=== PATIENT | male | born 1990 | race Caucasian/White ===

== ENCOUNTER 2021-02-09 11:19 | Emergency (ER) | payer OTHER ==
[2021-02-09 13:32] VITALS: RESP 18; TEMP 98.5
--- NOTE | 2021-02-09 13:57 | ED ---
Upper Extremity HPI - General Source: patient, RN notes reviewed Mode of arrival: ambulatory Limitations: no limitations <Ned Hines - Last Filed: 02/09/21 15:09> <Mari Plaza - Last Filed: 02/10/21 00:47> - General Chief Complaint: Extremity Injury, Upper Stated Complaint: shoulder injury Time Seen by Provider: 02/09/21 13:34 - History of Present Illness Initial Comments: Patient is a 30-year-old male presents to the ED for right shoulder pain. Patient states that today he was wrestling with his friend on the bed when they fell off the side. Patient reports he landed on right shoulder and been friend fell on top of him. Patient states hearing/feeling a pop related to the fall. Patient states they are unable to move her arm because of 10 out of 10 pain. Patient denies any elbow or upper arm pain. Patient reports no nausea or vomiting related to pain and states they're in normal good health before this event. (Ned Hines) - Related Data Previous Rx's Medication Instructions Recorded Ibuprofen [Motrin] 600 mg PO Q8HR PRN #20 tab 02/09/21 Allergies Allergy/AdvReac Type Severity Reaction Status Date / Time No Known Allergies Allergy Verified 02/09/21 13:32 Review of Systems ROS Other: All systems not noted in ROS Statement are negative. <Ned Hines - Last Filed: 02/09/21 15:09> ROS Other: All systems not noted in ROS Statement are negative. <Mari Plaza - Last Filed: 02/10/21 00:47> ROS Statement: Those systems with pertinent positive or pertinent negative responses have been documented in the HPI. Past Medical History Past Medical History: No Reported History History of Any Multi-Drug Resistant Organisms: None Reported Past Surgical History: No Surgical Hx Reported Past Psychological History: No Psychological Hx Reported Smoking Status: Current every day smoker Past Alcohol Use History: Occasional Past Drug Use History: None Reported <Ned Hines - Last Filed: 02/09/21 15:09> General Exam Limitations: no limitations General appearance: alert, in distress (Pain) Neck exam: Present: normal inspection, full ROM. Absent: tenderness, meningismus, lymphadenopathy Respiratory exam: Present: normal lung sounds bilaterally. Absent: respiratory distress, wheezes, rales, rhonchi, stridor Cardiovascular Exam: Present: regular rate, normal rhythm, normal heart sounds. Absent: systolic murmur, diastolic murmur, rubs, gallop, clicks Right General: Present: normal inspection Shoulder Exam: Present: tenderness (Severe), dislocation (Possible), other (Limited range of motion) Upper Arm exam: Present: normal inspection Elbow exam: Present: normal inspection Forearm Wrist exam: Present: normal inspection Hand Wrist exam: Present: normal inspection Back exam: Present: normal inspection Neurological exam: Present: alert, oriented X3 Skin exam: Present: warm, dry, intact, normal color. Absent: rash <Ned Hines - Last Filed: 02/09/21 15:09> Course Vital Signs 02/09/21 02/09/21 13:29 15:30 Temperature 98.5 F 98.5 F Pulse Rate 81 79 Respiratory 18 18 Rate Blood Pressure 123/81 128/78 O2 Sat by Pulse 97 98 Oximetry Medical Decision Making <Ned Hines - Last Filed: 02/09/21 15:09> <Mari Plaza - Last Filed: 02/10/21 00:47> - Medical Decision Making Patient presented with fall to the right shoulder, x-ray of right shoulder showed mild AC joint separation. Patient provided arm sling and Tylenol starter pack for pain. Orthopedic referral was also given for follow-up. (Ned Hines) I was available for consultation in the emergency department. The history and physical exam were done by the midlevel provider. I was consulted for this patients care. I reviewed the case with the midlevel provider and based on their presentation of the patient, I agree with the assessment, medical decision making and plan of care as documented. Chart was dictated using [employer] dictation software. Attempts were made to correct any dictation errors however some typographical errors may persist. (Mari Plaza) Disposition Is patient prescribed a controlled substance at d/c from ED?: No Time of Disposition: 15:09 <Ned Hines - Last Filed: 02/09/21 15:09> <Mari Plaza - Last Filed: 02/10/21 00:47> Clinical Impression: Acromioclavicular (AC) joint injury Disposition: HOME SELF-CARE Condition: Stable Instructions (If sedation given, give patient instructions): Acromioclavicular Separation (ED) Additional Instructions: Please return to the Emergency Department if symptoms worsen or any other concerns. Prescriptions: Ibuprofen [Motrin] 600 mg PO Q8HR PRN #20 tab PRN Reason: Pain Referrals: None,Stated [Primary Care Provider] - 1-2 days Maikel Matias MD [Medical Doctor] - 1-2 days
[2021-02-09] MEDS ORDERED: HYDROcodone/APAP 7.5-325MG 1 EACH TAB PO ONE (13:58)
--- NOTE | 2021-02-09 14:47 | XR ---
Right shoulder HISTORY: Pain, trauma 3 views of the right shoulder Bone mineralization is maintained. There is slight superior displacement of the distal clavicle in re lation to the acromion. Right lung apex as visualized is normal. IMPRESSION: Correlate for possible acromioclavicular separation.
[2021-02-09] MEDS ORDERED: ACET/COD 300 MG/30 MG STARTER PACK 6 TAB BTL PO STA (14:56)
[2021-02-09 15:40] VITALS: BP 128/78; PULSE 79
== END 2021-02-09 15:30 | disposition home or self-care (01) ==
LOC: EC 11:19
DX: S49.91XA Unspecified injury of right shoulder and upper arm, initial encounter (principal); F17.200 Nicotine dependence, unspecified, uncomplicated; W06.XXXA Fall from bed, initial encounter; Y93.72 Activity, wrestling; Y92.89 Other specified places as the place of occurrence of the external cause
CPT/HCPCS: 99283

== ENCOUNTER 2023-05-11 15:29 | Inpatient (IN) | payer OTHER ==
[2023-05-11] MEDS ORDERED: LORazepam 2 MG/ML INJ IM PRN (16:07)
[2023-05-11] MEDS ORDERED: MAG HYDROX/AL HYDROX/SIMETH 30 ML CUP PO PRN (16:07)
[2023-05-11] MEDS ORDERED: haloperidoL 5 MG TAB PO PRN (16:07)
[2023-05-11] MEDS ORDERED: LORazepam 1 MG TAB PO PRN (16:07)
[2023-05-11] MEDS ORDERED: ONDANSETRON 4 MG TAB PO PRN (16:07)
[2023-05-11] MEDS ORDERED: ACETAMINOPHEN TAB 325 MG TAB PO PRN (16:07)
[2023-05-11] MEDS ORDERED: HALOPERIDOL LACTATE 5 MG/ML 1 ML VIAL IM PRN (16:07)
[2023-05-11] MEDS ORDERED: MAGNESIUM HYDROXIDE 2,400 MG/30 ML CUP PO PRN (16:07)
[2023-05-11] MEDS ORDERED: oxyCODONE-APAP 5-325MG 1 EACH TAB PO PRN (16:07)
[2023-05-11] MEDS ORDERED: SODIUM CHLORIDE 0.65% NASAL SPRAY 44 ML BTL NASAL PRN (16:07)
[2023-05-11] MEDS ORDERED: QUEtiapine 25 MG TAB PO SCH (21:00)
[2023-05-11] MEDS ORDERED: ENOXAPARIN 30 MG/0.3 ML SYRINGE SQ SCH (21:00)
[2023-05-12] MEDS: CHLORHEXIDINE GLUCONATE 15 ML CUP MUCOUS MEM SCH ×3 (02:59→22:03)
[2023-05-12] MEDS: SENNOSIDES-DOCUSATE SODIUM 1 EACH TAB PO SCH ×2 (03:00→08:53)
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
[2023-05-12] MEDS: FOLIC ACID 1 MG TAB PO SCH (08:50)
[2023-05-12] MEDS: THIAMINE 100 MG TAB PO SCH (08:51)
[2023-05-12] MEDS: SERTRALINE 50 MG TAB PO SCH (08:51)
[2023-05-12] MEDS: MULTIVITAMINS, THERA 1 EACH TAB PO SCH (08:51)
[2023-05-12] MEDS: ENOXAPARIN 40 MG/0.4 ML SYRINGE SQ SCH (08:53)
[2023-05-12] MEDS ORDERED: polyethylene glycoL 3350 17 GM POWD.PACK PO SCH (09:00)
[2023-05-12] MEDS ORDERED: traZODone HCL 50 MG TAB PO PRN (12:39)
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
[2023-05-12 18:30] LABS: LDL Cholesterol,Calculated 136.3 mg/dL (0.0-131.0)
[2023-05-12] MEDS: ACETAMINOPHEN TAB 500 MG TAB PO PRN (22:04)
[2023-05-13] MEDS: ENOXAPARIN 40 MG/0.4 ML SYRINGE SQ SCH (08:57)
[2023-05-13] MEDS: MULTIVITAMINS, THERA 1 EACH TAB PO SCH (08:57)
[2023-05-13] MEDS: FOLIC ACID 1 MG TAB PO SCH (08:57)
[2023-05-13] MEDS: THIAMINE 100 MG TAB PO SCH (08:57)
[2023-05-13] MEDS: SERTRALINE 50 MG TAB PO SCH (08:57)
[2023-05-13] MEDS: CHLORHEXIDINE GLUCONATE 15 ML CUP MUCOUS MEM SCH ×2 (08:57→20:52)
[2023-05-13] MEDS: NALTREXONE HCL 50 MG TAB PO SCH (08:57)
[2023-05-13] MEDS: IBUPROFEN 600 MG TAB PO PRN (08:58)
--- NOTE | 2023-05-13 12:51 | P.PN ---
Progress Note - Text Progress Note Date: 05/13/23 Interval History: Patient was seen [wandering the hallways] and was directable and agreeable to speak with junior copywriter in the office. patient appearts to be less tearful today , somewhat constricted. He was fairly concrete, denies any overlay complaints states he slept fairly. Claims his appetite is improving. He claims that he did speak with his mother and brother over the phone and states that "it went well" however did not give much information for than not. Claims that the guns have been removed from the house. He states that he has been going to some groups today, he was somewhat focused on discharge and continues to minimize need for hospitalization. At this time patient denies any suicidal or homical ideations, intent or plan. Patient denies any auditory, visual hallucinations and denies any paranoia or delusions. Patient denies any side effects from the medications and has been compliant with meds. MENTAL STATUS EXAM: General Appearance: Patient appears to be average stature, stated age is alert, directable, and attempts to cooperate. Patient appears to have fair hygiene and grooming, dressed in hospital gown. Behavior: Patient is seated without any agitated behavior. Not tearful today. Constricted Speech: Patient's speech is fluent and nonpressured. Mood/Affect: Patient reports their mood is "a bit better", affect is congruent and constricted. Minimizing Suicidality/Homicidality: Patient denies having any homicidal ideation intent or plan. Denies any suicidal ideations intent or plan Perceptions: Patient denies any visual hallucinations and denies any auditory hallucinations Though content/process: There is no evidence of any delusional thought content and thought process is linear and goal-directed. [place], minimizing, Memory and concentration: AOX3, grossly intact for the purposes of this session. Judgment and insight: poor, superficial IMPRESSIONS: Major depressive disorder without psychotic features Suicide attempt by firearm Nicotine dependance Marijuana use disorder Cocaine use disorder Alcohol use disorder PLAN: -Patient is admitted under involuntary status to [facility] for stabilization of psychiatric symptoms and safety. Patient has not signed adult voluntary form and medication consent and is placed in patient's chart. A second certification was completed and along with petition will be filed for court. -Medications : trazadone 50mg qhs prn for sleep, Zoloft 50mg qd for mood/anxiety, will consider increaisng tomorrow if tolerated. Naltraxone 50mg qd for alcohol cravings -Ativan and Haldol PRN for agitation/aggression -NRT - nicotine patch -SW on board for discharge planning. Encourage patient to participate in groups to work on coping skills. Patient wants to go to rehab upon discharge. Will await deferral and court date.
[2023-05-13] MEDS: ACETAMINOPHEN TAB 500 MG TAB PO PRN (20:52)
[2023-05-14] MEDS: FOLIC ACID 1 MG TAB PO SCH (08:51)
[2023-05-14] MEDS: CHLORHEXIDINE GLUCONATE 15 ML CUP MUCOUS MEM SCH ×2 (08:51→20:35)
[2023-05-14] MEDS: MULTIVITAMINS, THERA 1 EACH TAB PO SCH (08:51)
[2023-05-14] MEDS: SERTRALINE 50 MG TAB PO SCH (08:52)
[2023-05-14] MEDS: NALTREXONE HCL 50 MG TAB PO SCH (08:52)
[2023-05-14] MEDS: THIAMINE 100 MG TAB PO SCH (08:52)
[2023-05-14] MEDS: ACETAMINOPHEN TAB 500 MG TAB PO PRN ×2 (08:53→20:30)
[2023-05-14] MEDS: ENOXAPARIN 40 MG/0.4 ML SYRINGE SQ SCH (08:55)
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
[2023-05-15] MEDS: THIAMINE 100 MG TAB PO SCH (08:37)
[2023-05-15] MEDS: CHLORHEXIDINE GLUCONATE 15 ML CUP MUCOUS MEM SCH ×2 (08:37→19:52)
[2023-05-15] MEDS: NALTREXONE HCL 50 MG TAB PO SCH (08:37)
[2023-05-15] MEDS: SERTRALINE 50 MG TAB PO SCH (08:37)
[2023-05-15] MEDS: FOLIC ACID 1 MG TAB PO SCH (08:37)
[2023-05-15] MEDS: MULTIVITAMINS, THERA 1 EACH TAB PO SCH (08:37)
[2023-05-15] MEDS: IBUPROFEN 600 MG TAB PO PRN ×2 (08:38→19:54)
--- NOTE | 2023-05-15 18:59 | P.PN ---
Progress Note - Text Progress Note Date: 05/15/23 Interval History: Patient was seen in the activity room was agreeable to speak with this designer/writer. Patient is severely minimizing his attempt and states that it was all due to alcohol intake. However, he is ambivalent about treatment and says that he has numerous tasks that he wishes to accomplish that interfere with going to rehab. As result, patient does not express interest in the rehab at this time. He also does not feel that he needs to be hospitalized and does not recognize the severity of his presentation. He vaguely states that the medications are fine that he has no problems taking them. However, he does not feel he needs them and feels that he can simply quit drinking. At this time patient denies any suicidal or homicidal ideation, intent or plan. Patient denies any auditory, visual hallucinations and denies any paranoia or delusions. Patient denies any side effects from the medications and has been compliant with meds. MENTAL STATUS EXAM: General Appearance: Patient appears to be average stature, stated age is alert, directable, and attempts to cooperate. Patient appears to have fair hygiene and grooming Behavior: Patient is seated without any agitated behavior. Speech: Patient's speech is fluent and nonpressured. Mood/Affect: Patient reports their mood is "good", affect is congruent and constricted. Minimizing Suicidality/Homicidality: Patient denies having any homicidal ideation intent or plan. Denies any suicidal ideations intent or plan Perceptions: Patient denies any visual hallucinations and denies any auditory hallucinations Though content/process: There is no evidence of any delusional thought content and thought process is linear and goal-directed. [place], minimizing, Memory and concentration: AOX3, grossly intact for the purposes of this session. Judgment and insight: poor, superficial IMPRESSIONS: Major depressive disorder without psychotic features Suicide attempt by firearm Nicotine dependance Marijuana use disorder Cocaine use disorder Alcohol use disorder PLAN: -Patient is admitted under involuntary status to [facility] for stabilization of psychiatric symptoms and safety. Patient has not signed adult voluntary form and medication consent and is placed in patient's chart. A second certification was completed and along with petition will be filed for court. -Medications : trazadone 50mg qhs prn for sleep, increase Zoloft to 100mg qd for mood/anxiety. Naltraxone 50mg qd for alcohol cravings -Ativan and Haldol PRN for agitation/aggression -NRT - nicotine patch -IMELDA on board for discharge planning. Encourage patient to participate in groups to work on coping skills. Patient is now ambivalent about going to rehab upon discharge. Will await deferral and court date.
[2023-05-16] MEDS: CHLORHEXIDINE GLUCONATE 15 ML CUP MUCOUS MEM SCH ×2 (08:32→21:00)
[2023-05-16] MEDS: MULTIVITAMINS, THERA 1 EACH TAB PO SCH (08:32)
[2023-05-16] MEDS: SERTRALINE 100 MG TAB PO SCH (08:32)
[2023-05-16] MEDS: THIAMINE 100 MG TAB PO SCH (08:33)
[2023-05-16] MEDS: IBUPROFEN 600 MG TAB PO PRN ×2 (08:33→21:00)
[2023-05-16] MEDS: NALTREXONE HCL 50 MG TAB PO SCH (08:33)
[2023-05-16] MEDS: FOLIC ACID 1 MG TAB PO SCH (08:33)
--- NOTE | 2023-05-16 17:43 | P.PN ---
Progress Note - Text Progress Note Date: 05/16/23 Interval History: Patient was seen bedside this afternoon and was agreeable to speak with this va underwriter. He is rather circumstantial when he discusses his substance use. He states that he has numerous priorities that take precedence over going to rehab at this time. However, he hopes to follow up with community mental health following discharge. He states that once he takes care of his priorities, he hopes to attend rehab somewhere in [place]. He says that he does not want to be close to home while attending rehab because he feels that this will impede his improvement. Patient currently reports that he has not been experiencing any cravings. He admits that his brother has taken away all his guns and denies access to any weapons. He is says that his mood is "fine ". He reports sleeping well. He endorses good appetite. He endorses fair energy. He denies all other concerns at this time. He says he would like to be discharged tomorrow for possible. At this time patient denies any suicidal or homicidal ideation, intent or plan. Patient denies any auditory, visual hallucinations and denies any paranoia or delusions. Patient denies any side effects from the medications and has been compliant with meds. MENTAL STATUS EXAM: General Appearance: Patient appears to be average stature, stated age is alert, directable, and attempts to cooperate. Patient appears to have fair hygiene and grooming Behavior: Patient is seated without any agitated behavior. Speech: Patient's speech is fluent and nonpressured. Mood/Affect: Patient reports their mood is "fine", affect is congruent and constricted. Minimizing Suicidality/Homicidality: Patient denies having any homicidal ideation intent or plan. Denies any suicidal ideations intent or plan Perceptions: Patient denies any visual hallucinations and denies any auditory hallucinations Though content/process: There is no evidence of any delusional thought content and thought process is linear and goal-directed. [place] Memory and concentration: AOX3, grossly intact for the purposes of this session. Judgment and insight: poor, superficial IMPRESSIONS: Major depressive disorder without psychotic features Suicide attempt by firearm Nicotine dependance Marijuana use disorder Cocaine use disorder Alcohol use disorder PLAN: -Patient is admitted under involuntary status to [facility] for stabilization of psychiatric symptoms and safety. Patient has not signed adult voluntary form and medication consent and is placed in patient's chart. A second certification was completed and along with petition will be filed for court. -Medications : trazadone 50mg qhs prn for sleep, Zoloft 100mg qd for mood/anxi ety. Naltraxone 50mg qd for alcohol cravings -Ativan and Haldol PRN for agitation/aggression -NRT - nicotine patch -SW on board for discharge planning. Encourage patient to participate in groups to work on coping skills. Patient would like to attend rehab and plans to set this up by himself. Will await deferral and court date.
[2023-05-17] MEDS: THIAMINE 100 MG TAB PO SCH (09:19)
[2023-05-17] MEDS: FOLIC ACID 1 MG TAB PO SCH (09:19)
[2023-05-17] MEDS: CHLORHEXIDINE GLUCONATE 15 ML CUP MUCOUS MEM SCH ×2 (09:19→21:03)
[2023-05-17] MEDS: SERTRALINE 100 MG TAB PO SCH (09:19)
[2023-05-17] MEDS: NALTREXONE HCL 50 MG TAB PO SCH (09:20)
[2023-05-17] MEDS: MULTIVITAMINS, THERA 1 EACH TAB PO SCH (09:20)
[2023-05-17] MEDS: IBUPROFEN 600 MG TAB PO PRN ×2 (09:21→21:05)
[2023-05-17 14:00] VITALS: BMI 22.9
--- NOTE | 2023-05-17 17:29 | P.PN ---
Subjective Progress Note Date: 05/17/23 Progress Note - Text Progress Note Date: 05/17/23 Interval History: The patient was seen chart was reviewed in case discussed with the nursing staff the patient was seen by a telemedicine patient reports that this is his first admission on a psychiatrist unit he states that he had a lot of stuff that was going on and coded wars buses that about 20 months ago and that he was living with his mother and was feeling sad for her going through her depression patient however slowly introduce that it had also to do with drinking too much and that he will also doing cocaine at that time he reports that he and his brother often do cocaine when they get together and that it did seem to get out of hand he admits that he also has a 12-year-old child from a previous relationship and that he sees her quite often he says that he had done something very impulsively without thinking and that he regrets is behavior and feels very isamar that he survived the current ordeal Patient currently reports that he has not been experiencing any cravings. He admits that his brother has taken away all his guns and denies access to any weapons. He is says that his mood is "fine ". He reports sleeping well. He endorses good appetite. He endorses fair energy. He denies all other concerns at this time. He says he would like to be discharged tomorrow for possible. At this time patient denies any suicidal or homicidal ideation, intent or plan. Patient denies any auditory, visual hallucinations and denies any paranoia or delusions. Patient denies any side effects from the medications and has been compliant with meds. MENTAL STATUS EXAM: General Appearance: Patient appears to be average stature, stated age is alert, directable, and attempts to cooperate. Patient appears to have fair hygiene and grooming patient also tries to project an uncaring behavior and minimizing issues Behavior: Patient is seated without any agitated behavior. Speech: Patient's speech is fluent and nonpressured. Mood/Affect: Patient reports their mood is "fine", affect is congruent and constricted. Minimizing Suicidality/Homicidality: Patient denies having any homicidal ideation intent or plan. Denies any suicidal ideations intent or plan Perceptions: Patient denies any visual hallucinations and denies any auditory hallucinations Though content/process: There is no evidence of any delusional thought content and thought process is linear and goal-directed. [place] Memory and concentration: AOX3, grossly intact for the purposes of this session. Judgment and insight: poor, superficial IMPRESSIONS: Major depressive disorder without psychotic features Suicide attempt by firearm Nicotine dependance Marijuana use disorder Cocaine use disorder Alcohol use disorder PLAN: -Patient is admitted under involuntary status to [facility] for stabilization of psychiatric symptoms and safety. Patient has not signed adult voluntary form and medication consent and is placed in patient's chart. A second certification was completed and along with petition will be filed for court. -Medications : trazadone 50mg qhs prn for sleep, Zoloft 100mg qd for mood/anxiety. Naltraxone 50mg qd for alcohol cravings -Ativan and Haldol PRN for agitation/aggression -NRT - nicotine patch -SW on board for discharge planning. Encourage patient to participate in groups to work on coping skills. Patient would like to attend rehab and plans to set this up by himself. Will await deferral and court date. Continue supportive care and continue to stress on getting quantum treatment including substance use program and inpatient Jero Oglesby MD 05/17/22 Objective - Vital Signs Vital signs: Vital Signs Temp 97.5 F L 05/17/23 06:47 Pulse 60 05/17/23 06:47 Resp 14 05/17/23 06:47 BP 104/59 05/17/23 06:47 Pulse Ox 98 05/17/23 06:47 FiO2 Intake & Output 05/16/23 05/17/23 05/17/23 18:59 06:59 18:59 Weight 72.7 kg 72.7 kg
[2023-05-18] MEDS: CHLORHEXIDINE GLUCONATE 15 ML CUP MUCOUS MEM SCH ×2 (08:50→20:47)
[2023-05-18] MEDS: SERTRALINE 100 MG TAB PO SCH (08:50)
[2023-05-18] MEDS: FOLIC ACID 1 MG TAB PO SCH (08:50)
[2023-05-18] MEDS: MULTIVITAMINS, THERA 1 EACH TAB PO SCH (08:50)
[2023-05-18] MEDS: NALTREXONE HCL 50 MG TAB PO SCH (08:50)
[2023-05-18] MEDS: THIAMINE 100 MG TAB PO SCH (08:50)
[2023-05-18] MEDS: IBUPROFEN 600 MG TAB PO PRN ×2 (08:51→20:47)
--- NOTE | 2023-05-18 13:38 | P.PN ---
Subjective Progress Note Date: 05/18/23 Progress Note - Text Progress Note Date: 05/18/23 Interval History: The patient was seen chart was reviewed in case discussed with the nursing staff the patient was seen by a telemedicine Patient remains demanding patient as to what he has to do to prove that he is doing better he states that he is attending all the groups and meetings he continues to minimize the severity of his actions and remains focused on wanting to go home no agitation or aggression noted patient remains redirectable she states that he slept well he states that he is not having any nightmares he denies any suicidal arms ideations or plans Patient now reports that he plans to follow up with going into a substance use program but is still not yet decided as to where he will go MENTAL STATUS EXAM: General Appearance: Patient appears to be average stature, stated age is alert, directable, and attempts to cooperate. Patient appears to have fair hygiene and grooming patient also tries to project an uncaring behavior and minimizing issues Behavior: Patient is seated without any agitated behavior. Speech: Patient's speech is fluent and nonpressured. Mood/Affect: Patient reports their mood is "fine", affect is congruent and constricted. Minimizing Suicidality/Homicidality: Patient denies having any homicidal ideation intent or plan. Denies any suicidal ideations intent or plan Perceptions: Patient denies any visual hallucinations and denies any auditory hallucinations Though content/process: There is no evidence of any delusional thought content and thought process is linear and goal-directed. [place] Memory and concentration: AOX3, grossly intact for the purposes of this session. Judgment and insight: poor, superficial IMPRESSIONS: Major depressive disorder without psychotic features Suicide attempt by firearm Nicotine dependance Marijuana use disorder Cocaine use disorder Alcohol use disorder PLAN: -Patient is admitted under involuntary status to [facility] for stabilization of psychiatric symptoms and safety. Patient has not signed adult voluntary form and medication consent and is placed in patient's chart. A second certification was completed and along with petition will be filed for court. -Medications : trazadone 50mg qhs prn for sleep, Zoloft 100mg qd for mood/anx iety. Naltraxone 50mg qd for alcohol cravings -Ativan and Haldol PRN for agitation/aggression -NRT - nicotine patch -SW on board for discharge planning. Encourage patient to participate in groups to work on coping skills. Patient would like to attend rehab and plans to set this up by himself. Will await deferral and court date. Continue supportive care and continue to stress on getting quantum treatment including substance use program and inpatient Jero Oglesby MD 05/18/22 Objective - Vital Signs Vital signs: Vital Signs Temp 97.2 F L 05/18/23 06:28 Pulse 59 L 05/18/23 06:28 Resp 14 05/18/23 06:28 BP 106/59 05/18/23 06:28 Pulse Ox 98 05/17/23 06:47 FiO2 Intake & Output 05/17/23 05/18/23 05/18/23 18:59 06:59 18:59 Weight 72.7 kg
[2023-05-19 07:34] VITALS: RESP 16
[2023-05-19] MEDS: SERTRALINE 100 MG TAB PO SCH (08:51)
[2023-05-19] MEDS: THIAMINE 100 MG TAB PO SCH (08:51)
[2023-05-19] MEDS: MULTIVITAMINS, THERA 1 EACH TAB PO SCH (08:51)
[2023-05-19] MEDS: FOLIC ACID 1 MG TAB PO SCH (08:51)
[2023-05-19] MEDS: NALTREXONE HCL 50 MG TAB PO SCH (08:51)
[2023-05-19] MEDS: CHLORHEXIDINE GLUCONATE 15 ML CUP MUCOUS MEM SCH ×2 (08:51→20:43)
[2023-05-19] MEDS: IBUPROFEN 600 MG TAB PO PRN ×2 (08:52→20:44)
--- NOTE | 2023-05-19 14:53 | P.PN ---
Subjective Progress Note Date: 05/19/23 Progress Note - Text Progress Note Date: 05/19/23 Interval History: The patient was seen for a follow-up new line patient is casually dressed and groomed new line he says that he is feeling a lot better new line history is that he has to wait for about a month before he decides to go into any treatment program new line he said that he has to take care of some legal issues including the divorce matter as well as some meetings that have been scheduled but was unclear patient however states that he would be willing to attend some other outpatient treatment classes including AA as suggested MENTAL STATUS EXAM: Patient is casually dressed and groomed new line affect at this time remains flat patient makes good eye contact speech was clear cool current and relevant new line thought processes are goal- directed sequential logical patient at times seem to get irritable and guarded no suicidal or homicidal ideations verbalized you know signs of a new overt psychosis noted new line IMPRESSIONS: Major depressive disorder without psychotic features Suicide attempt by firearm Nicotine dependance Marijuana use disorder Cocaine use disorder Alcohol use disorder PLAN: Continue current care and support tentative discharge on Wednesday continuous or restraining supportive care encouraged to mobilize his feelings and help with problem solving -Patient is admitted under involuntary status to [facility] for stabilization of psychiatric symptoms and safety. Patient has not signed adult voluntary form and medication consent and is placed in patient's chart. A second certification was completed and along with petition will be filed for court. -Medications : trazadone 50mg qhs prn for sleep, Zoloft 100mg qd for mood/anxiety. Naltraxone 50mg qd for alcohol cravings -Ativan and Haldol PRN for agitation/aggression -NRT - nicotine patch -SW on board for discharge planning. Encourage patient to participate in groups to work on coping skills. Patient would like to attend rehab and plans to set this up by himself. Will await deferral and court date. Continue supportive care and continue to stress on getting quantum treatment including substance use program and inpatient Jero Oglesby MD 05/19/22 Objective - Vital Signs Vital signs: Vital Signs Temp 97.8 F 05/19/23 07:02 Pulse 55 L 05/19/23 07:02 Resp 16 05/19/23 07:02 BP 97/63 05/19/23 07:02 Pulse Ox 98 05/19/23 07:02 FiO2
[2023-05-20] MEDS: SERTRALINE 100 MG TAB PO SCH (08:51)
[2023-05-20] MEDS: THIAMINE 100 MG TAB PO SCH (08:51)
[2023-05-20] MEDS: NALTREXONE HCL 50 MG TAB PO SCH (08:51)
[2023-05-20] MEDS: CHLORHEXIDINE GLUCONATE 15 ML CUP MUCOUS MEM SCH ×2 (08:51→19:52)
[2023-05-20] MEDS: IBUPROFEN 600 MG TAB PO PRN ×2 (08:51→19:53)
[2023-05-20] MEDS: FOLIC ACID 1 MG TAB PO SCH (08:51)
[2023-05-20] MEDS: MULTIVITAMINS, THERA 1 EACH TAB PO SCH (08:51)
--- NOTE | 2023-05-20 15:00 | P.PN ---
Subjective Progress Note Date: 05/20/23 Progress Note - Text Progress Note Date: 05/20/23 Interval History: The patient was seen chart was reviewed in case discussed with the nursing staff Patient reports that he started to feel much better and that is attending all the groups and meetings it reports that he has to go to the court for two different situations he says that he has to go to the court for not being able to make this payment for child support in the month of April because he was in the hospital he says that he also has to go to the court to retract the divorce degree since his does not want him to and that she will lose the insurance coverage that is being provided to him through his participation in the service patient say that he also is considering going to [place] [id number] substance use program He says that a friend has given him good information about some program in [place] that he finds more appealing as well as that it will also be a good change for him to be getting away from this place for a while MENTAL STATUS EXAM: Patient is casually dressed and groomed new line affect at this time remains flat patient makes good eye contact speech was clear Coherent and relevant thought processes are goal-directed sequential logical Patient seem to be much more cooperative today no suicidal or homicidal ideations verbalized you know signs of a new overt psychosis noted new line IMPRESSIONS: Major depressive disorder without psychotic features Suicide attempt by firearm Nicotine dependance Marijuana use disorder Cocaine use disorder Alcohol use disorder PLAN: Continue current care and support Patient continues to demand for discharge although with this severe suicide attempt patient is advised that we still need to continue observation and provide the necessary supervision and support continue supportive care encouraged to Express his feelings and help with problem solving -Patient is admitted under involuntary status to [facility] for stabilization of psychiatric symptoms and safety. -Medications : trazadone 50mg qhs prn for sleep, Zoloft 100mg qd for mood/anxiety. Naltraxone 50mg qd for alcohol cravings -Ativan and Haldol PRN for agitation/aggression -NRT - nicotine patch -SW on board for discharge planning. Encourage patient to participate in groups to work on coping skills. Patient would like to attend rehab and plans to set this up by himself. Will await deferral and court date. Continue supportive care and continue to stress on getting quantum treatment including substance use program and inpatient Jero Oglesby MD 05/20/22 Objective - Vital Signs Vital signs: Vital Signs Temp 97.8 F 05/19/23 07:02 Pulse 64 05/20/23 06:48 Resp 16 05/20/23 06:48 BP 102/68 05/20/23 06:48 Pulse Ox 98 05/19/23 07:02 FiO2
[2023-05-21 05:59] VITALS: BP 114/58; PULSE 63; TEMP 98.1
[2023-05-21] MEDS: SERTRALINE 100 MG TAB PO SCH (08:26)
[2023-05-21] MEDS: FOLIC ACID 1 MG TAB PO SCH (08:26)
[2023-05-21] MEDS: CHLORHEXIDINE GLUCONATE 15 ML CUP MUCOUS MEM SCH (08:26)
[2023-05-21] MEDS: MULTIVITAMINS, THERA 1 EACH TAB PO SCH (08:26)
[2023-05-21] MEDS: THIAMINE 100 MG TAB PO SCH (08:26)
[2023-05-21] MEDS: NALTREXONE HCL 50 MG TAB PO SCH (08:26)
[2023-05-21] MEDS: IBUPROFEN 600 MG TAB PO PRN (08:27)
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
== END 2023-05-21 12:32 | disposition home or self-care (01) | DRG 885 ==
LOC: 3MHU 23:33
PROVIDERS: ADMIT Psychiatry & Neurology Psychiatry; ATTEND Psychiatry & Neurology Psychiatry
DX: F32.2 Major depressive disorder, single episode, severe without psychotic features (principal); S01.83XD Puncture wound without foreign body of other part of head, subsequent encounter; F10.10 Alcohol abuse, uncomplicated; F17.200 Nicotine dependence, unspecified, uncomplicated; Z65.3 Problems related to other legal circumstances; F41.9 Anxiety disorder, unspecified; F14.10 Cocaine abuse, uncomplicated; F12.10 Cannabis abuse, uncomplicated; S02.2XXD Fracture of nasal bones, subsequent encounter for fracture with routine healing; S02.609D Fracture of mandible, unspecified, subsequent encounter for fracture with routine healing; S02.401D Maxillary fracture, unspecified side, subsequent encounter for fracture with routine healing; S02.80XD Fracture of other specified skull and facial bones, unspecified side, subsequent encounter for fracture with routine healing; Z28.310 Unvaccinated for COVID-19; Z63.9 Problem related to primary support group, unspecified; Z63.5 Disruption of family by separation and divorce; Z63.4 Disappearance and death of family member; Z71.41 Alcohol abuse counseling and surveillance of alcoholic; Z71.51 Drug abuse counseling and surveillance of drug abuser
CPT/HCPCS: 80061; 83036; 84443